=== PATIENT | male | born 1965 | race Caucasian/White ===

== ENCOUNTER 2017-02-21 09:08 | Inpatient (IN) | payer OTHER ==
[~2017-02-21] VITALS: Ht 182.9 cm; Wt 100.2 kg
[2017-02-21 10:02] LABS: CALCIUM 8.8 mg/dL (8.5-10.1); CARBON DIOXIDE 30.6 mmol/L (21-32); CHLORIDE SERUM 102 mmol/L (98-107); CREATININE SERUM 0.9 mg/dL (0.7-1.3); GFR1 > 60 mL/min; GLUCOSE SERUM 91 mg/dL (74-106); POTASSIUM SERUM 4.6 mmol/L (3.5-5.1); SODIUM SERUM 138 mmol/L (136-145)
[2017-02-21 10:06] LABS: ALBUMIN 3.6 g/dL (3.4-5.0); ALKALINE PHOSPHATASE 94 U/L (46-116); ALT/SGPT 28 U/L (16-63); AST/SGOT 11 U/L (15-37); BILIRUBIN TOTAL 0.7 mg/dL (0.20-1.00); HDL CHOLESTEROL 36 mg/dL (40-60); MAGNESIUM 2.1 mg/dL (1.8-2.4); TOTAL PROTEIN, SERUM 7.9 g/dL (6.4-8.2)
[2017-02-21 10:07] LABS: CHOLESTEROL 224 mg/dL (<200)
[2017-02-21 10:12] LABS: BASOPHIL % 0.7 % (0-2); PLATELET COUNT 273 x10^3mcL (130-400); RED CELL DISTRIBUTION WIDTH 13.1 % (11.5-14.5)
[2017-02-21 11:28] LABS: microscopic required? NO
[2017-02-21 11:51] LABS: urine erythrocyte NEGATIVE (NEGATIVE)
[2017-02-21 12:09] LABS: AMPHETAMINE QUAL UR NONE DETECTED (NEG <=1000)
[2017-02-21 12:26] VITALS: BP 123/87
[2017-02-21 13:31] LABS: PHOSPHOROUS 3.4 mg/dL (2.5-4.9)
[2017-02-21 13:34] LABS: CHOLESTEROL/HDL RATIO 6.4
[2017-02-21 13:39] LABS: FREE T4 1.06 ng/dL (0.76-1.46); FREE THYROXINE INDEX 3.1 ug/dL (1.4-4.5); T4(THYROXINE) 9.5 ug/dL (4.7-13.3)
[2017-02-21 13:40] VITALS: BP 121/79
[2017-02-21 14:02] LABS: T3 TOTAL 1.37 ng/mL
[2017-02-21 17:47] VITALS: BP 126/78
[2017-02-22 05:47] VITALS: BP 114/72
[2017-02-22 06:15] LABS: BASOPHIL % 0.6 % (0-2); PLATELET COUNT 259 x10^3mcL (130-400)
[2017-02-22 06:50] LABS: CALCIUM 8.6 mg/dL (8.5-10.1); CARBON DIOXIDE 28.2 mmol/L (21-32); CHLORIDE SERUM 104 mmol/L (98-107); CREATININE SERUM 0.9 mg/dL (0.7-1.3); GFR1 > 60 mL/min; GLUCOSE SERUM 86 mg/dL (74-106); MAGNESIUM 2.1 mg/dL (1.8-2.4); PHOSPHOROUS 3.4 mg/dL (2.5-4.9); POTASSIUM SERUM 4.1 mmol/L (3.5-5.1); SODIUM SERUM 138 mmol/L (136-145)
[2017-02-22 08:55] VITALS: BP 124/85
[2017-02-22] MEDS ORDERED: LIPI10 PO (12:03)
[2017-02-22] MEDS ORDERED: ASPIR 8181 MG PO (12:04)
[2017-02-22 12:16] VITALS: BP 124/85
[2017-02-22 12:50] VITALS: BP 128/85
== END 2017-02-22 14:16 | disposition home or self-care (01) | DRG 47 ==
LOC: ED 09:08 → DU 10:57
PROVIDERS: Emergency Medicine; ADMIT Family Medicine
DX: G45.9 Transient cerebral ischemic attack, unspecified (principal); E72.20 Disorder of urea cycle metabolism, unspecified; G90.9 Disorder of the autonomic nervous system, unspecified; I10 Essential (primary) hypertension; M51.34 Other intervertebral disc degeneration, thoracic region; E78.00 Pure hypercholesterolemia, unspecified; E66.9 Obesity, unspecified; Z68.30 Body mass index [BMI] 30.0-30.9, adult; Z82.3 Family history of stroke
CPT/HCPCS: 83880; 84439; J7030; Q0092